=== PATIENT | female | born 2005 | race Caucasian/White ===

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

== ENCOUNTER 2025-05-14 07:54 | Emergency (ER) | payer MEDICAID, SELFPAY ==
--- OUTSIDE RECORDS SUMMARY | 2025-05-14 07:56 | XMS_ITS | Clinical Summary ---
Author Organization [facility] Address [address] , [address] [place] [address] Phone Care Team Providers Care Technology Architect Name Role Phone Print, Print Unavailable Conditions or Problems Problem Name Problem Code Onset Date Status Entry Date Provider Comment Standard Description Annotate Other specified headache syndromes [id number] (SNOMED CT) Active Isaias Brandt MD Transformed migraine Medications Medication Instructions Start Date Stop Date Generic Name NDC Provider AMITRIPTYLINE HCL 25 MG TABS 2 tablet by mouth at bedtime amitriptyline [id number] Isaias Brandt MD AMITRIPTYLINE HCL 25 MG TABS 1 tablet by mouth at bedtime amitriptyline [id number] Isaias Brandt MD AMITRIPTYLINE HCL 25 MG TABS 2 tablet by mouth at bedtime amitriptyline [id number] Isaias Brandt MD AMITRIPTYLINE HCL 25 MG TABS 1 tablet by mouth at bedtime amitriptyline [id number] Isaias Brandt MD Medications Administered No information available. Allergies, Adverse Reactions, Alerts No information available. Results Date Name Value Unit Range Flag Description Office Visit: Office Visit T ension type [facility]'s r/s from 08/24/22 No prev scans MEDS REVIEW Done Documenta tion of current medications (procedure) Internal Other: Authorizatio n - OBS [email or web address] Yes Authoriza tion: Release of Information - Authorize [facility] - Payment and Healthcare Operations [email or web address] Yes Authoriz ation: Release of Information - Authorize Others/Insurance - Payment and Healthcare Operations HIECONSENT Yes Consent To Release information to the Health Information Exchange (HIE) [email or web address] Yes Authorizat ion: Authorization for [facility] to leave messages, voicemail, send text messages, send emails [email or web address] Yes Authoriz ation: Release/Retrieval of Information to/from Healthcare Facilities, Pharmacy Benefit Payers and Providers [email or web address] Yes Authoriz ation: Notice of privacy practices AUTHBENEFIT Yes Authoriza tion: Assignment of Benefits and Payment Agreement Plan of Care No information available. Procedures Code Procedure Name Date Entry Date [id number] Documentation of current medicatio ns Vital Signs Date Name Value Unit Description Weight Measured 102 kg weight in kilograms E&M Immunizations No information available. Advance Directives No information available.
--- OUTSIDE RECORDS SUMMARY | 2025-05-14 07:56 | XMS_ITS | Clinical Summary ---
Author Organization [facility] Address [address] [place] [address] Care Team Providers Care Media Technician Name Role Phone Alyssa Vernon Primary Care Provider Allergies Active Allergy Reactions Criticality Noted Date Comments Latex Throat Swelling/Closing 03/16/2010 Medications topiramate (TOPAMAX) 50 mg tabletIndications :Migraine with status migrainosus, not intractable, unspecified migraine type Take 1 Tablet (50 mg) by mouth two times daily. 180 Tablet 3 4 Active lisdexamfetamine (Vyvanse) 30 mg capsuleIndication s:Attention deficit hyperactivity disorder (ADHD), predominantly inattentive type Take 1 Capsule (30 mg) by mouth once daily in the morning. 30 Capsule 5 Active lisdexamfetamine (Vyvanse) 30 mg capsuleIndication s:Attention deficit hyperactivity disorder (ADHD), predominantly inattentive type Take 1 Capsule (30 mg) by mouth once daily. 30 Capsule 5 Active nabumetone (RELAFEN) 500 mg tabletIndications :Trochanteric bursitis of right hip Take 1 Tablet (500 mg) by mouth two times daily with meals. 60 Tablet 1 5 Active triamcinolone 0.1 % creamIndications: Acute eczema Apply topically to affected area(s) two times daily. Not to exceed 14 days per episode. 30 g 3 5 Active meloxicam 15 mg tabletIndications :Pain of right hip,Tear of right acetabular labrum, initial encounter,Femoroa cetabular impingement of right hip Take 1 Tablet (15 mg) by mouth once daily. 30 Tablet 5 Active SUMAtriptan 50 mg tabletIndications :Migraine with status migrainosus, not intractable, unspecified migraine type Take 1 Tablet (50 mg) by mouth every 2 hours if needed for Migraine. Give at minimum 2hrs apart. Max Dose: 200mg per 24hrs. 10 Tablet 3 5 Active Rozerem 8 mg tabletIndications :Insomnia, idiopathic Take 1 Tablet (8 mg) by mouth at bedtime if needed for Sleep. 20 Tablet 5 Active sertraline 50 mg tabletIndications :Anxiety Take 1 Tablet (50 mg) by mouth once daily in the morning. 30 Tablet 1 5 Active naltrexone-buprop ion 8-90 mg 8-90 mg Extended-Release tabletIndications :Class 3 severe obesity with body mass index (BMI) of 40.0 to 44.9 in adult (HC) Take 1 Tablet by mouth two times daily. 60 Tablet 1 5 Active SUMAtriptan (IMITREX) 50 mg tabletIndications :Migraine with status migrainosus, not intractable, unspecified migraine type Take 1 Tablet (50 mg) by mouth every 2 hours if needed for Migraine. Give at minimum 2hrs apart. Max Dose: 200mg per 24hrs. 10 Tablet 3 5 025 Discontin ued(Reord er (E-cancel not sent)) traZODone 50 mg tabletIndications :Insomnia, idiopathic Take 1-2 Tablets (50-100 mg) by mouth at bedtime. 90 Tablet 3 5 025 Discontin ued(*Med ineffecti ve) ramelteon 8 mg tabletIndications :Insomnia, idiopathic Take 1 Tablet (8 mg) by mouth at bedtime if needed for Sleep. 15 Tablet 5 025 Discontin ued(*Piper ent states no longer taking) Active Problems No known active problems Resolved Problems Problem Noted Date Diagnosed Date Resolved Date Obesity in adolescent 02/05/20212024 Encounters Date Type Department Care Team Description 05/07/2025 7:30 AM CDT Office Visit [facility] [address] [place] [address] Alyssa Vernon PA Derm Problem (Wart tx); Medication Management (Rozerem - didn't know it was called it); Anxiety (Discuss options) 05/07/2025 Travel 04/17/2025 Telephone [facility] [address] [place] [address] Alyssa Vernon PA Prior Authorization (ramelteon 8 mg tablet - DENIED) 04/16/2025 7:50 AM CDT Office Visit [facility] [address] [place] [address] Alyssa Vernon PA Derm Problem (Wart tx) 04/16/2025 Travel 03/29/2025 3:00 PM CDT Office Visit [facility] [address] [place] [address] Alyssa Vernon PA Eye Problem (L eye pain x 3 days. Is red. [place] like something was in it, she rubbed it and has hurt ever since); Derm Problem (Wart tx) 03/29/2025 Travel 03/14/2025 1:55 PM CDT Ancillary Procedure [facility] [address] [place] [address] 03/14/2025 1:40 PM CDT Office Visit [facility] [address] [place] [address] Sohan Linder MD Hip Pain/problem (Right) 03/14/2025 Travel 02/27/2025 2:00 PM CDT Office Visit [facility] [address] [place] [address] Alyssa Vernon PA Follow Up (Sleeping good, getting random migraines ) 02/27/2025 Travel 02/22/2025 Telephone [facility] [address] [place] [address] Alyssa Vernon PA Results 02/21/2025 2:45 PM CDT Ancillary Procedure [facility] [address] [place] [address] 02/21/2025 Travel 02/21/2025 Refill [facility] [address] [place] [address] Alyssa Vernon PA Refill Request (Triamcinolone) 02/18/2025 3:00 PM CDT Office Visit [facility] [address] [place] [address] Dominic Choi, [facility] Visit 02/18/2025 Travel 02/13/2025 1:20 PM CDT Office Visit [facility] [address] [place] [address] Alyssa Vernon PA Follow Up (Checking in - L ear starting to hurt, still draining. / sleep meds are working good ) 02/13/2025 Travel from Last 3 Months Immunizations Immunization Administration Dates Next Due AMB Influenza, IIV4 PF (=>6 mos Flulaval,Fluzone Fluarix)(Flu Clinic Only) 09/12/2020,09/06/2018 DTaP 07/11/2007, 6,05/13/2006,03/11 DTaP-IPV (Kinrix) 03/26/2011 HIB PRP-D (ProHIBIT) 07/11/2007 HIB PRP-OMP (PedvaxHIB) 07/11/2007 HIB-HepB (Comvax) 01/10/2007,05/13/2006,03/11/20 06 HPV 9 (Gardasil 9) 08/01/2020,06/01/2018 Hepatitis A (Peds) 01/02/2008,04/21/2007 Hepatitis A, Unspecified 04/21/2007 Hepatitis B (Peds) 01/10/2007, 6,03/11/2006,12/26 Hib Conjugate, Unspecified 07/11/2007 Inactivated Polio Vaccine 07/11/2007,,05/13/2006,03/11 Influenza A (H1N1), Inactivated 10/31/2009,10/03 Influenza Virus, Unspecified 09/16/2017, 10/13/2015,11/10/2006,10/10 Influenza, IIV3 (Age 6-35 mos) 09/02/2011,2008 Influenza, IIV3 (Age >=3 years) 09/25/2007,11/10,10/10/2006 Influenza, IIV4 11/25/2021, 9,09/16/2017,10/03 Influenza, IIV4 (=>6mos) MDV 10/13/2015 Influenza,LAIV4 Live Intrana isabel (Flumist) 10/04/2013 MENINGOCOCCAL VACCINE 2 VIAL 2MO-55YO (MENVEO) 12/27/2023,06/01/2018 MMR 03/26/2011,04/21/2007 MMRV 03/26/2011,04/21/2007 Pneumococcal conj 7-Valent (Prevnar 7) 0 01/10/2007,07/13/2006,05/13/2006,03/11 Tdap 06/01/2018 Family History Medical History Relation Name Comments Good Health Brother Diabetes Father Kidney failure Father Bipolar disorder Mother Good Health Sister Relation Name Status Comments Brother Alive Father Mother Alive Sister Alive Social History Tobacco Use Types Packs/Day Years Used Date Smoking Tobacco: Never Smokeless Tobacco: Never Tobacco Cessation:Counseling Given: Yes Alcohol Use Standard Drinks/Week Comments Never 0 (1 standard drink = 0.6 oz pur e alcohol) PHQ-2 Answer Date Recorded PHQ-2 TOTAL SCORE 1 02/18/2025 Social Connections Answer Date Recorded Do you often feel lonely or isolated from those around you? 0 02/27/2025 Financial Resource Strain Answer Date R ecorded Difficulty of Paying Living Expenses 3 02/27/2025 Difficulty of Paying Living Expenses Not on file 02/27/2025 Food Insecurity Answer Date Recorded Do you worry your food will run out before you are able to buy more? 1 02/27/2025 Transportation Needs Answer Date Record ed Does lack of transportation keep you from medica l appointments? 1 02/27/2025 Does lack of transportation keep you from work, meetings or getting things that you need? 1 02/27/2025 Housing Stability Answer Date Recorded What is your housing situation today? 1 02/27/2025 Utilities Answer Date Recorded Do you have trouble paying f or utilities (for example, heat, electricity, water, phone)? 1 02/27/2025 Comments No Sex and Gender Information Value Date Recorded Sex Assigned at Not on file Legal Sex Female 7:14 AM [employer] Gender Identity Not on file Sexual Orientation Not on file Obstetrics History Last Filed Vital Signs Vital Sign Reading Time Taken Comments Blood Pressure 107/72 05/07/2025 7:38 AM CDT Pulse 91 05/07/2025 7:38 AM CDT Temperature 37.1 C (98.7 F) 01/28/2021 7:38 PM CDT Respiratory Rate 16 01/28/2021 7:38 PM CDT Oxygen Saturation 100% 02/05/2021 8:50 AM CDT Inhaled Oxygen Concentration - - Weight 117.5 kg (259 lb) 05/07/2025 7:38 AM CDT Height 165.1 cm (5' 5) 12/27/2023 9:09 AM [employer]IV[employer] Body Mass Index - - Plan of Treatment Upcoming Encounters Date Type Department Care Team (Late st Contact Info) Description 05/29/2025 7:50 AM CDT Office Visit [facility] [address] [place] [address] Alyssa Vernon PA [address] [place] [address] Health Maintenance Due Date Last Done Comments HIV for age 15-65 2020 Chlamydia for age 16-24 2021 Hepatitis C screening for age 18-79 2023 COVID-19 vaccine series ( season) 2024 12/12/2021, 04/25/2021, 04/04/2021 BMI (ht and wt on same day) for age 18+ 12/27/2024 12/27/2023 Well Child Check for age 3-20 12/27/2024 12/27/2023 Influenza Vaccine (Season Ended) 2025 11/25/2021, 09/12/2020, 09/04/2019, Additional history exists Depression screening for age 12+ 02/27/2026 02/27/2025, 02/22/2025, 02/21/2025, Additional history exists Tetanus booster 06/01/2028 06/01/2018 Hepatitis B series for 19+ Completed 01/10, 01/10/2007, 05/13/2006, Additional history exists Pneumococcal series for age 6-49 Aged Out 01/10/2007, 07/13/2006, 05/13/2006, Additional history exists No longer eligible based on patient's age to complete this topic (IA) Tdap Completed 06/01/2018 HPV series for age 9-26 Completed 08/01/2020, 06/01 Meningococcal series for age 11-21 Completed 12/27/2023, 06/01/2018 Procedures Procedure Name Priority Date/Time Associated Diagnosis Comments HEMOGLOBIN A1C Routine 03/29/2025 3:36 PM CDT Diabetes mellitus screening XR HIP 2 OR 3 VIEWS W PELVIS RIGHT Routine 03/14/2025 1:56 PM CDT Pain of right hip Hip pain, right MR HIP RIGHT WO Routine 02/21/2025 3:04 PM CDT Hip pain, right from Last 3 Months Results * HEMOGLOBIN A1C (03/29/2025 3:36 PM CDT) HEMOGLOBIN A1C 5.3 <5.7 % [facility] Comment: For the purpose of screening for the presence of diabetes: <5.7% Consistent with the absence of diabetes 5.7-6.4% Consistent with increased risk for diabetes (prediabetes) > or =6.5% Consistent with diabetes This assay result is consistent with a decreased risk of diabetes. Currently, no consensus exists regarding use of hemoglobin A1c for diagnosis of diabetes in children. According to [place] Diabetes Association (ADA) guidelines, hemoglobin A1c <7.0% represents optimal control in non- diabetic patients. Different metrics may apply to specific patient populations. Standards of Medical Care in Diabetes(ADA). Blood BLOOD SPECIMEN / Unknown 03/29/2025 3:36 PM CDT 03/29/2025 3:36 PM CDT Alyssa PETERS CHEMISTRY Final R esult [facility] [address] [place] [address], [place] [phone] [facility] [address] [place] [address] * XR HIP 2 OR 3 VIEWS W PELVIS RIGHT (03/14/2025 1:56 PM CDT) Anatomical Region Laterality Modality HIPS, HIPR, Pelvis Digital Radio graphy Impressions 03/18/2025 4:08 PM CDT Mixed type femoral acetabular impingement. No loose bodies. No hardware. No fracture or dislocation. All services were personally performed by Sohan Linder MD Documentation performed by Farooq Romano LAT, ATC based on my observation of services performed and provider statements to me. Sohan iLnder MD 03/14/2025 Narrative 03/18/2025 4:08 PM CDT This radiology exam was performed at the [place] location in the [facility] and interpreted by Sohan Linder MD. HISTORY: A 19 y.o. female with right hip pain. TECHNICAL: 3 view(s) were obtained of the right consisting of supine AP pelvis, modified cedillo , and false profile FINDINGS: There are no osteophytes. Joint space is well maintained. There is a large subspine lesion. Cedillo view: decreased head neck offset, positive CAM lesion False profile: Appropriate coverage of the femoral head. No joint space narrowing. Specific Findings: LCEA: 29 ACEA: 43 Neck shaft angle: 135 Alpha: 67 Tonnis: <10 Crossover: present Ischial Spine sign: present Subspine: Type II Sohan Linder MD GENERAL IMAGING Final Resul t * MR HIP RIGHT WO (02/21/2025 3:04 PM CDT) Anatomical Region Laterality Modality HIPR Magnetic Resonan ce 02/21/2025 9:29 PM CDT Impressions 02/21/2025 9:29 PM CDT 1. Short-segment shallow tear of the right posterolateral labrum at the labral chondral junction. 2. Findings worrisome for a left posterolateral labral tear. 3. Remainder unremarkable. Dictated by Ge Capps MD @ 02/21/2025 9:29:25 PM (Electronically Signed) Narrative 02/21/2025 9:29 PM CDT For Patients: As a result of the Cures Act, medical imaging exams and procedure reports are released immediately into your electronic medical record. You may view this report before your referring provider. If you have questions, please contact your health care provider. EXAM: MRI OF THE RIGHT HIP, WITHOUT CONTRAST CLINICAL INDICATION: Chronic right hip pain. COMPARISON PLAIN FILMS: None. COMPARISON CROSS-SECTIONAL IMAGING STUDIES: None. TECHNICAL: Axial, sagittal and coronal PD FS small field of view images of the hip. Coronal T1, PD FS and axial T1 images of the pelvis. FINDINGS: RIGHT HIP: Labrum: Short-segment shallow tear of the posterolateral labrum at the labral chondral junction. No paralabral cyst. No labral degeneration. Articular Cartilage: Articular surfaces appear smooth without focal chondral defect or subchondral marrow changes. Joint Space: No effusion, synovitis or loose body. Proximal Femoral Morphology: No significant osseous bump. Femoral head-neck offset is within normal limits. Acetabular Morphology: No focal or global retroversion. No significant overcoverage. LEFT HIP: Subtle linear signal in the posterior superior left labrum in a similar location worrisome for a labral tear. No paralabral cyst. Articular cartilage is intact. No joint effusion. OSSEOUS STRUCTURES: No fracture, marrow edema or marrow replacement process. No evidence for avascular necrosis. MUSCULOTENDINOUS STRUCTURES AND BURSAE: Gluteus Minimus and Medius: No tendon tear or tendinopathy. No muscle atrophy or edema. Bursae: No trochanteric or iliopsoas bursitis. Common Hamstrings: No tendon tear or tendinopathy. Other: Tendons and myotendinous junctions are intact. No muscle atrophy or edema. SOFT TISSUES: No subcutaneous edema, hematoma or fluid collection. OTHER JOINTS: Sacroiliac joints are maintained. Pubic symphysis is maintained. INTRAPELVIC CONTENTS: No mass, fluid collection or adenopathy. Small fat containing umbilical hernia. NEUROVASCULAR STRUCTURES: No abnormality involving the visualized proximal femoral or proximal sciatic nerves. No aneurysmal dilation of the visualized distal aorta or iliac arterial circulation. Procedure Note Ge Capps MD - 02/21/2025 For Patients: As a result of the Century Cures Act, medical imagingexams and procedure reports are released immediately into your electronicmedical record. You may view this report before your referring provider.If you have questions, please contact your health care provider. EXAM: MRI OF THE RIGHT HIP, WITHOUT CONTRAST CLINICAL INDICATION: Chronic right hip pain. COMPARISON PLAIN FILMS: None. COMPARISON CROSS-SECTIONAL IMAGING STUDIES: None. TECHNICAL: Axial, sagittal and coronal PD FS small field of view images of the hip.Coronal T1, PD FS and axial T1 images of the pelvis. FINDINGS: RIGHT HIP: Labrum: Short-segment shallow tear of the posterolateral labrum at thelabral chondral junction. No paralabral cyst. No labral degeneration. Articular Cartilage: Articular surfaces appear smooth without focalchondral defect or subchondral marrow changes. Joint Space: No effusion, synovitis or loose body. Proximal Femoral Morphology: No significant osseous bump. Femoralhead-neck offset is within normal limits. Acetabular Morphology: No focal or global retroversion. No significantovercoverage. LEFT HIP: Subtle linear signal in the posterior superior left labrum in a similarlocation worrisome for a labral tear. No paralabral cyst. Articularcartilage is intact. No joint effusion. OSSEOUS STRUCTURES: No fracture, marrow edema or marrow replacement process. No evidence foravascular necrosis. MUSCULOTENDINOUS STRUCTURES AND BURSAE: Gluteus Minimus and Medius: No tendon tear or tendinopathy. No muscleatrophy or edema. Bursae: No trochanteric or iliopsoas bursitis. Common Hamstrings: No tendon tear or tendinopathy. Other: Tendons and myotendinous junctions are intact. No muscle atrophy oredema. SOFT TISSUES: No subcutaneous edema, hematoma or fluid collection. OTHER JOINTS: Sacroiliac joints are maintained. Pubic symphysis is maintained. INTRAPELVIC CONTENTS: No mass, fluid collection or adenopathy. Small fat containing umbilicalhernia. NEUROVASCULAR STRUCTURES: No abnormality involving the visualized proximal femoral or proximalsciatic nerves. No aneurysmal dilation of the visualized distal aorta oriliac arterial circulation. IMPRESSION: 1. Short-segment shallow tear of the right posterolateral labrum at thelabral chondral junction. 2. Findings worrisome for a left posterolateral labral tear. 3. Remainder unremarkable. Dictated by Ge Capps MD @ 02/21/2025 9:29:25 PM (Electronically Signed) Alyssa PETERS MR Final R esult from Last 3 Months Insurance [facility] Advance Directives * Full Code (Latest Code Status on File) Date Activated Date Inactivated Comments 09/01/2012 11:04 AM 09/01/2012 5:08 PM Care Teams Media Technician Relationship Specialty Start Date End Date Alyssa Vernon PA [address] [place] [address] PCP - General Physician Nursing Home Director 12/21/23
[2025-05-14 08:00] VITALS: BP 126/85; PULSE 103; RESP 16; TEMP 36.9; O2SAT 97; BMI 38.1
--- NOTE | 2025-05-14 08:15 | ED.GENADULT ---
HPI - General Adult General Chief complaint: Headache/Migraine Stated complaint: migraine x 4 days Time Seen by Provider: 05/14/25 08:15 History of Present Illness HPI narrative: Pt reports ongoing migraine for 4 days. Has taken her 1 migraine medication at home and this has not resolved her migraine. Called her doctor and doctor said she should just come to the ER for treatment. Symptoms of right-sided headache and some black spots in vision . Rates pain . 19-year-old young woman presenting to the emergency department with concern of headache. She does have a diagnosis of migraines and has tried her sumatriptan but headache is not improved. Was recommended to present to the emergency department. Headache is primarily right-sided and she has been seeing black spots. Is not really nauseated. Is experiencing photophobia. Other than duration, this is not an unusual headache. No fever. No rash. Related Data Home Medications ?Medication ?Instructions ?Recorded ?Confirmed amitriptyline 50 mg tablet 50 mg PO BID 03/08/24 05/14/25 sumatriptan succinate 50 mg tablet 50 mg PO Q2H PRN migraine 09/06/24 05/14/25 dextroamphetamine-amphetamine 15 1 tab PO BID 12/13/24 05/14/25 mg tablet sertraline 50 mg tablet 50 mg PO QAM 05/14/25 05/14/25 Previous Rx's ?Medication ?Instructions ?Recorded albuterol sulfate 90 mcg/actuation 2 puff inhalation Q4H PRN 07/29/23 aerosol inhaler shortness of breath or wheezing #17 grams Allergies Allergy/AdvReac Type Severity Reaction Status Date / Time latex Allergy Mild Verified 04/23/25 17:07 amoxicillin Allergy Unknown Verified 04/23/25 17:07 clavulanic acid Allergy Verified 04/23/25 17:07 Review of Systems Status of ROS: Reports: 6 or more systems reviewed and unremarkable except as noted in History and below [facility] Medical History Sprain of left ankle ?S93.402A - Sprain of unspecified ligament of left ankle, initial encounter (ICD-10) Concussion ?S06.0X9A - Concussion with loss of consciousness of unspecified duration, initial encounter (ICD-10) Closed fracture of left fibula ?S82.402A - Unspecified fracture of shaft of left fibula, initial encounter for closed fracture (ICD-10) Attention deficit hyperactivity disorder (ADHD) ?F90.9 - Attention-deficit hyperactivity disorder, unspecified type (ICD-10) Sore throat ?J02.9 - Acute pharyngitis, unspecified (ICD-10) Headache ?R51.9 - Headache, unspecified (ICD-10) Family History Mother Bipolar disorder Father Type 2 diabetes mellitus Other Hypothyroidism Social History Smoking Status: Never smoker Do you use any of these nicotine containing products: None Second hand tobacco smoke exposure: No How often do you have a drink containing alcohol: never AUDIT-C Alcohol total score: 0 Non-prescribed substance use: denies use Caffeine: No Are you using contraception or practicing any form of control: No service: No Exam Narrative: Exam Narrative: Pleasant. NAD. She is however in a darkened room. Skin is warm and dry. Cranial nerves 2-12 intact. Pupils are equal and briskly reactive. She is sensitive to light. Extremities without edema. Moving all extremities without difficulty. Mildly elevated heart rate. Does have some soreness in the trapezial in paracervical musculature. Const: Vital Signs, click to edit/add: Vital Signs - 24 hr 05/14/25 08:00 Temperature 98.5 F Pulse Rate [Pulse Oximeter] 103 H Respiratory Rate 16 Blood Pressure [Ri ght Upper Arm] 126/85 Pulse Oximetry 97 Oxygen Delivery Me thod Room Air Documenting provider has reviewed patient's vital signs: yes Course Vital Signs Vital signs: Initial Vital Signs Temperature 98.5 F 05/14/25 08:00 Temperature Source Temporal Artery Scan 05/14/25 08:00 Pulse Rate 103 H 05/14/25 08:00 Respiratory Rate 16 05/14/25 08:00 Blood Pressure 126/85 05/14/25 08:00 Blood Pressure Mean 98 05/14/25 08:00 Blood Pressure Position Sitting 05/14/25 08:00 Pulse Oximetry 97 05/14/25 08:00 Oxygen Delivery Method Room Air 05/14/25 08:00 Vital Signs Temperature 98.5 F 05/14/25 08:00 Pulse Rate 103 H 05/14/25 08:00 Respiratory Rate 16 05/14/25 08:00 Blood Pressure 126/85 05/14/25 08:00 Pulse Oximetry 97 05/14/25 08:00 Oxygen Delivery Method Room Air 05/14/25 08:00 Temperature 98.5 F 05/14/25 08:00 Pulse Rate 103 H 05/14/25 08:00 Respiratory Rate 16 05/14/25 08:00 Blood Pressure 126/85 05/14/25 08:00 Pulse Oximetry 97 05/14/25 08:00 Oxygen Delivery Method Room Air 05/14/25 08:00 Medications Administered Medications: Discontinued Medications Generic Name Dose Route Start Last Admin Trade Name Freq PRN Reason Stop Dose Admin Diphenhydramine HCl 25 mg 05/14/25 08:26 05/14/25 08:52 Diphenhydramine 50 Mg/Ml Inj IVP 05/14/25 08:27 25 mg ONCE ONE Administration Sodium Chloride 1,000 mls @ 1,000 mls/hr 05/14/25 08:26 05/14/25 12:13 0.9 % Sodium Chloride 1000 Ml IV 05/14/25 09:25 Infused .Q1H ONE Infusion Ketorolac Tromethamine 15 mg 05/14/25 08:26 05/14/25 08:52 Ketorolac 15 Mg/Ml Inj IVP 05/14/25 08:27 15 mg ONCE ONE Administration Medical Decision Making MDM Narrative Medical decision making narrative: No red flags to suggest anything other than usual headache/migraine. Concerning is duration I suppose though. There is no particular timing to her headaches i.e. no correlation with menstrual cycle. I did review prior visit for headache here. Does not feel she needs treatment for nausea. Discussed options. Placing IV ketorolac normal saline diphenhydramine. Upon reassessment after this treatment is markedly improved and requesting departure from the emergency department. See patient discharge plan for further discussion happy you are feeling better. stay well hydrated. stretch and try to get in a little heart pumping exercise daily. Medical Records Medical records reviewed: Yes I reviewed the patient's medical records Discharge Plan Discharge Clinical Impression: Migraine Patient Disposition: Home w/ Parent or Adult Condition: Improved Additional Instructions: happy you are feeling better. stay well hydrated. stretch and try to get in a little heart pumping exercise daily. Prescriptions: No Action albuterol sulfate 90 mcg/actuation HFA aerosol inhaler 2 puff inhalation Q4H PRN (Reason: shortness of breath or wheezing) Qty: 17 0RF Rx Instructions: Take 2 puffs every 4 hours as needed for cough/shortness of breath. amitriptyline 50 mg tablet 50 mg PO BID dextroamphetamine-amphetamine 15 mg tablet 1 tab PO BID sumatriptan succinate 50 mg tablet 50 mg PO Q2H PRN (Reason: migraine) sertraline 50 mg tablet 50 mg PO QAM Follow Up/Referrals: Alyssa Vernon [facility] [Primary Care Provider, Family Practice] Stand Alone Forms: [employer] Info Instructions
== END 2025-05-14 09:50 | disposition home or self-care (01) ==
PROVIDERS: Emergency Provider Family Medicine; PCP Physician Assistant Medical
DX: G43.909 Migraine, unspecified, not intractable, without status migrainosus (principal)
CPT/HCPCS: 96374; 96375; 99284; J1200; J1885; J7030